=== PATIENT | female | born 1990 | race Two or more races ===

== ENCOUNTER 2018-07-18 22:30 | Emergency (ER) | payer BC ==
[~2018-07-18] VITALS: Ht 165.1 cm; Wt 54.0 kg
--- NOTE | 2018-07-18 22:44 | NUR ---
Pt ambulated to ER with steady gait with c/o intermittent chest discomfort x 2 months radiating to both her wrists. s/s worse today. denies sob. placed on classroom monitor. pt appears in no apparent distress. pt states has hx of irritable bowel syndrome
[2018-07-18] MEDS ORDERED: OMEP20TA5 PO (23:00)
[2018-07-18 23:13] LABS: BASOPHILS # (AUTO) 0.1 K/uL (0.0-8.0); BASOPHILS % (AUTO) 0.6 % (0.0-2.0); EOSINOPHILS # (AUTO) 0.2 K/uL (0.0-0.7); EOSINOPHILS % (AUTO) 1.8 % (0.0-7.0); HEMATOCRIT 39.4 % (31.2-41.9); HEMOGLOBIN 13.8 g/dL (10.9-14.3); LYMPHOCYTES # (AUTO) 2.6 K/uL (20.0-40.0); LYMPHOCYTES % (AUTO) 29.9 % (20.5-51.5); MEAN CORPUSCULAR HGB CONC 35 g/dL (32.3-35.6); MEAN CORPUSCULAR VOLUME 82.8 fL (75.5-95.3); MONOCYTES # (AUTO) 0.7 K/uL (2.0-10.0); MONOCYTES % (AUTO) 7.8 % (0.0-11.0); NEUTROPHILS # (AUTO) 5.2 K/uL (1.8-8.9); NEUTROPHILS % (AUTO) 59.9 % (38.5-71.5); PLATELET COUNT (AUTO) 222 K/uL (179-408); RED BLOOD CELL COUNT(AUTO) 4.76 MIL/uL (3.63-4.92); WHITE BLOOD COUNT (AUTO) 8.7 K/uL (3.8-11.8)
[2018-07-18 23:25] LABS: CREATININE 0.7 mg/dL (0.6-1.3); POTASSIUM 3.6 mmol/L (3.5-5.1)
[2018-07-18 23:31] LABS: BILIRUBIN,DIRECT 0.1 mg/dL (0.0-0.2); BILIRUBIN,TOTAL 0.5 mg/dL (0.2-1.0); TOTAL PROTEIN, SERUM 7.7 g/dL (6.4-8.2)
[2018-07-18 23:35] LABS: THYROID STIMULATING HORMONE 4.129 mIU/mL (0.358-3.740)
--- NOTE | 2018-07-18 23:54 | NUR ---
IV removed. Catheter intact and site benign. Pressure and 4x4 gauze applied to site. No bleeding noted.
--- NOTE | 2018-07-18 23:56 | NUR ---
Patient discharged to home in stable conditon. Written and verbal after care instructions given. Patient verbalizes understanding of instructions. Pt ambulated out of ER in steady gait. All belongings with pt. VSS. NAD noted.
[2018-07-18 23:57] VITALS: BP 116/74
== END 2018-07-18 23:58 | disposition home or self-care (01) ==
LOC: ER 22:30
DX: R07.89 Other chest pain (principal); Z79.899 Other long term (current) drug therapy
CPT/HCPCS: 36415; 70030-TC; 71045; 84443; 85025; 85730; 93005; A4663

== ENCOUNTER 2018-07-19 22:05 | Emergency (ER) | payer BC ==
[~2018-07-19] VITALS: Ht 162.6 cm; Wt 51.7 kg
[~2018-07-19 22:05] MED LIST: OMEP20TA5 PO
--- NOTE | 2018-07-20 00:30 | NUR ---
Pt ambulated into the dept accompanied by friend. Pt ANO and able to verbalize complaints. Pt c/o neck, jaw, head pain since this morning. Pt also stated that she started having a tingling sensation in her wrists, and ankles while she was jogging this morning. Upon assessment patient's pain is not as severe as it was this morning. As far as the tingling, they are not as evident.
--- NOTE | 2018-07-20 00:33 | NUR ---
Pt ambulated to ER with c/o neck pain radiating to her head since yesterday. Pt was seen here 1 day ago & d/c for nonspecific chest pain. Denies CP/SOB. Denies GI/ distress. No acute distress noted. Pt denies any injury. Able to move all extremities. Speech clear. AAOX4.
--- NOTE | 2018-07-20 00:46 | NUR ---
Dr. Delroy VILLAR MD at bedside to evaluate pt.
[2018-07-20] MEDS ORDERED: IV NORMAL SALINE 1000 ML BAG IV ONE (01:00)
[2018-07-20 01:17] LABS: BASOPHILS # (AUTO) 0.1 K/uL (0.0-8.0); BASOPHILS % (AUTO) 0.5 % (0.0-2.0); EOSINOPHILS # (AUTO) 0.3 K/uL (0.0-0.7); EOSINOPHILS % (AUTO) 2.5 % (0.0-7.0); HEMATOCRIT 40.3 % (31.2-41.9); HEMOGLOBIN 13.9 g/dL (10.9-14.3); LYMPHOCYTES # (AUTO) 3.2 K/uL (20.0-40.0); LYMPHOCYTES % (AUTO) 31.1 % (20.5-51.5); MEAN CORPUSCULAR HEMOGLOBIN 28.6 uug (24.7-32.8); MEAN CORPUSCULAR HGB CONC 34 g/dL (32.3-35.6); MEAN CORPUSCULAR VOLUME 83.2 fL (75.5-95.3); MONOCYTES # (AUTO) 0.8 K/uL (2.0-10.0); MONOCYTES % (AUTO) 7.3 % (0.0-11.0); NEUTROPHILS # (AUTO) 6.1 K/uL (1.8-8.9); NEUTROPHILS % (AUTO) 58.6 % (38.5-71.5); PLATELET COUNT (AUTO) 224 K/uL (179-408); RED BLOOD CELL COUNT(AUTO) 4.84 MIL/uL (3.63-4.92); WHITE BLOOD COUNT (AUTO) 10.4 K/uL (3.8-11.8)
[2018-07-20 01:25] LABS: CREATININE 0.7 mg/dL (0.6-1.3)
[2018-07-20 01:29] LABS: BILIRUBIN,DIRECT 0.1 mg/dL (0.0-0.2); BILIRUBIN,TOTAL 0.4 mg/dL (0.2-1.0); TOTAL PROTEIN, SERUM 7.7 g/dL (6.4-8.2)
[2018-07-20] MEDS ORDERED: IOHEXOL 350 100 ML INFUS..BTL ONE ×2 (01:39→02:13)
[2018-07-20] MEDS ORDERED: IV NORMAL SALINE 250 ML IV ONE (01:39)
[2018-07-20] MEDS ORDERED: SWABABLE VALVE TRANSFER SET EA MC ONE (01:39)
--- NOTE | 2018-07-20 01:46 | NUR ---
Pt went down to radiology dept for CT scans with contrast
--- NOTE | 2018-07-20 02:51 | NUR ---
Pt back from radiology dept placed back to room 2A. IV fluids infusing.
--- NOTE | 2018-07-20 04:00 | NUR ---
IV removed. Catheter intact and site benign. Pressure and 4x4 gauze applied to site. No bleeding noted.
--- NOTE | 2018-07-20 04:11 | NUR ---
dPatient discharged to home in stable conditon. Written and verbal after care instructions given. Patient verbalizes understanding of instructions. Patient ambulated out of dept with steady gait.
[2018-07-20 04:12] VITALS: BP 110/77
== END 2018-07-20 04:13 | disposition home or self-care (01) ==
LOC: ER 22:05
DX: M54.2 Cervicalgia (principal); F12.10 Cannabis abuse, uncomplicated; Z79.899 Other long term (current) drug therapy
CPT/HCPCS: 36415; 70496; 70498; 71275; 80048; 80076; 84484; 84702; 85025; 85730; 93005; 96360; 96361; 99284; Q9967 ×2; 70030-TC; A4663; J7030; J7050